=== PATIENT | female | born 1980 | race Two or more races ===

== ENCOUNTER 2024-08-11 04:58 | Day surgery (SDC) | payer OTHER ==
[2024-08-10 14:21] VITALS: BMI 24.7
[2024-08-11 09:22] VITALS: RESP 15; TEMP 97.5
[2024-08-11 09:37] VITALS: PULSE 70
[2024-08-11 09:40] VITALS: BP 121/71
== END 2024-08-11 09:53 | disposition home or self-care (01) ==
LOC: JASU-ENDO 04:58
PROVIDERS: ATTEND Internal Medicine Gastroenterology
PROC: 0DBL8ZX Excision of Transverse Colon, Via Natural or Artificial Opening Endoscopic, Diagnostic (ICD-10-PCS; principal; 2024-08-11 08:30)
DX: Z12.11 Encounter for screening for malignant neoplasm of colon (principal); K63.5 Polyp of colon; Z86.0100 Personal history of colon polyps, unspecified
CPT/HCPCS: 88305-TC